=== PATIENT | female | born 1980 | race Caucasian/White ===

== ENCOUNTER → 2016-04-19 | Outpatient (CLI) | payer OTHER ==
[~2016-04-19] VITALS: Ht 165.1 cm; Wt 74.8 kg
[~2016-04-19] MED LIST: IBUP800T23 PO; LIDOCAINE 2% INJ 100 MG/5 ML SDV (FOR ANES.) As Ordered ONE; LR 1,000 ML IV SCH; MIDAZOLAM INJ 2 MG/2 ML VIAL (J2250) As Ordered ONE; PROPOFOL 200 MG/20 ML VIAL As Ordered ONE; ROCURONIUM BROMIDE 50 MG/5 ML VIAL As Ordered ONE; ceFAZolin SOD 1 GM in D5W MINI-BAG PLUS 50 ML IV ONE; fentaNYL 250 MCG/5 ML INJECTION (J3010) As Ordered ONE
[2016-04-19 09:37] VITALS: BP 116/79
[2016-04-19 10:15] LABS: MEAN CORPUSCULAR HEMOGLOBIN 27.9 pg (27.0-33.0); MEAN CORPUSCULAR HGB CONC 33.5 g/dl (32.0-36.5); MEAN CORPUSCULAR VOLUME 83.3 fl (80.0-96.0); RED CELL DISTRIBUTION WIDTH 13.1 % (11.5-14.5); WHITE BLOOD COUNT 6.6 K/mm3 (4.0-10.0)
[2016-04-19 10:29] LABS: CONTROL LINE HCG INT CTR LINE PRESENT
== END ==
LOC: M OR 09:10 → UNDOADMIN 09:10 → M LAB 10:45 → EDSTATUS 10:45
PROVIDERS: ATTEND Obstetrics & Gynecology
DX: N93.9 Abnormal uterine and vaginal bleeding, unspecified (principal)
CPT/HCPCS: 36415; 84703; 85027; 86850; 86900; 86901; J0690

== ENCOUNTER → 2016-06-22 | Day surgery (SDC) | payer OTHER ==
[~2016-06-22] VITALS: Ht 165.1 cm; Wt 75.7 kg
[~2016-06-22] MED LIST changes: +HYDROmorphone HCL 1 MG/ML SYRINGE (J1170) IV PRN; +IBUPROFEN 600 MG TAB PO PRN; +KETOROLAC 60 MG/2 ML VIAL (J1885) As Ordered ONE; +LIDOCAINE 1% MDV 20ML VIAL SQ ONE; +METOCLOPRAMIDE INJ 10MG/2ML VIAL (J2765) As Ordered ONE; +NORCO, ANEXSIA 5/325MG TABLET (HYDROcodone/ACETAMINOPHEN) PO PRN; +ONDANSETRON 4MG/2ML VIAL (J2405) As Ordered ONE; +ONDANSETRON 4MG/2ML VIAL (J2405) IV PRN; -ROCURONIUM BROMIDE 50 MG/5 ML VIAL As Ordered ONE; +TYLE325C PO; +[UNRECOGNIZED DRUG - OTHER]; -ceFAZolin SOD 1 GM in D5W MINI-BAG PLUS 50 ML IV ONE; +dexameTHASONE 4 MG/ML 1ML VIAL (J1100) As Ordered ONE; +fentaNYL 100 MCG/2 ML INJECTION (J3010) As Ordered ONE; -fentaNYL 250 MCG/5 ML INJECTION (J3010) As Ordered ONE
--- NOTE | 2016-06-22 08:12 | RO ---
DATE OF PROCEDURE: 06/22/2016 PREPROCEDURE DIAGNOSIS/INDICATION FOR SURGERY: Dysmenorrhea and menorrhagia. POSTPROCEDURE DIAGNOSIS: Dysmenorrhea and menorrhagia. PROCEDURE: Dilatation and curettage, hysteroscopy, NovaSure ablation. SURGEON: Zaina Lechuga MD SENIOR INFRASTRUCTURE ARCHITECT: ANESTHESIA: LMA, general. BRIEF DESCRIPTION OF PROCEDURE AND FINDINGS: Cami was brought to the operating room where sufficient LMA anesthesia was induced and she was prepped, draped, and positioned in the usual sterile fashion. The bladder was emptied. The anterior aspect of the cervix was grasped with a single toothed tenaculum. This uterus would be accessible from below should that become necessary in the future. I then carefully sounded the uterus and got an endometrial cavity length of 5.5, width was subsequently measured at 4.5, but at this point we only had length. We then carefully dilated the cervix to allow introduction of the hysteroscope, which was used to visualize the endometrial cavity. There is an old blood clot there due to the patient's current menses, but no other significant lesion. The ostia are normal. We were unable to keep the clot away long enough to get a good picture of the left ostia. Nevertheless, there was normal appearance and blood, consistent with the patient's complaint of heavy bleed. We then ended the hysteroscopic portion of the procedure, thinned out the lining of the endometrium and removed some of that clot to facilitate the ablation and sample it again. We then placed the NovaSure ablative device. Length was set at 5.5, again width measured out at 4.5 and then uncomplicated NovaSure ablation was then done. The procedure was then ended. Estimated blood loss for the procedure was 5 mL or less. Fluid replacement: Crystalloid. COMPLICATIONS: None. CONDITION AND DISPOSITION: Cami tolerated the procedure well and was recovering well in the recovery room in good condition.
[2016-06-22] MEDS: fentaNYL 100 MCG/2 ML INJECTION (J3010) IV PRN ×4 (08:35→08:50)
[2016-06-22] MEDS: PERCOCET 5MG/325MG TAB PO PRN ×2 (08:35→09:05)
[2016-06-22 09:45] VITALS: BP 118/71
== END | disposition home or self-care (01) ==
LOC: M SDC 05:57
PROVIDERS: ATTEND Obstetrics & Gynecology
DX: N94.6 Dysmenorrhea, unspecified (principal); N92.0 Excessive and frequent menstruation with regular cycle; G43.909 Migraine, unspecified, not intractable, without status migrainosus; M54.5 Low back pain; Z98.51 Tubal ligation status